=== PATIENT | male | born 1985 | race African-American/Black ===

== ENCOUNTER 2020-04-22 16:03 | Emergency (ER) | payer OTHER, SELFPAY ==
[2020-04-22 16:21] VITALS: BP 134/85; PULSE 92; RESP 18; TEMP 36.4; O2SAT 100; BMI 62.2
--- NOTE | 2020-04-22 18:02 | ED_ITS ---
HPI - URI/Sore Throat General Chief Complaint: Fever Stated Complaint: FLU LIKE SYMPTOMS Source: patient Mode of arrival: ambulatory Limitations: no limitations History of Present Illness HPI Narrative: Patient presents to the ED for cough, body aches, chills, subjective fever, and runny nose. Patient states he was informed by his job that 2 of his coworkers were positive for COVID-19. Patient states having symp toms the past 2 days. Patient states no one else at home having similar symptoms. Patient denies any shortness of breath. MD elicited complaint: fever Onset (ago): day(s) (2 days) Description of mucous: clear Able to tolerate fluids by mouth: Yes Exacerbating factors: nothing Context: sick contacts (co-workers positive for COVID-19) Associated symptoms: fever, chills, myalgias, rhinorrhea and cough Treatments prior to arrival: none Related Data Previous Rx's Medication Instructions Recorded benzonatate [Tessalon Perles] 100 mg PO TID #15 cap 04/22/20 ibuprofen 400 mg PO Q6H PRN #28 tab 04/22/20 Allergies Allergy/AdvReac Type Severity Reaction Status Date / Time SEASONAL ALLERGIES Allergy Mild RUNNY NOSE Uncoded 04/22/20 16:20 Review of Systems Review of Systems: Yes all other systems are reviewed and are negative Constitutional: Constitutional: Denies snoring ENT: Denies change in voice, Denies dysphagia, Reports nasal congestion, Denies odynophagia, Denies sore throat and Denies tongue swelling Cardiovascular: Cardiovascular: Denies chest pain, Denies chest pain at rest, Denies chest pain with activity, Denies dyspnea, Denies dyspnea on exertion, Denies orthopnea and Denies paroxysmal nocturnal dyspnea Respiratory: Respiratory: Reports as per HPI, Reports no additional respiratory complaints, Reports cough, Denies hemoptysis, Denies excessive phlegm production, Denies pain on inspiration, Denies pain with cough, Denies dyspnea, Denies dyspnea on exertion, Denies snoring, Denies stridor and Denies wheezing Gastrointestinal: Gastrointestinal: Reports as per HPI, Reports no additional gastrointestinal complaints, Denies abdominal pain, Denies belching, Denies melena, Denies hematochezia, Denies coffee ground emesis, Denies constipation, Denies GI cramping, Denies dysphagia, Denies dyspepsia, Denies heartburn, Denies diarrhea, Denies loose stools, Denies odynophagia, Denies vomiting and Denies he matemesis Allergic/Immunologic: Allergic/Immunologic: Denies tongue swelling and Denies wheezing PMFSH Social History Social History Advance Directives: No Advance Directives Information Provided: No Physical Exam Vital Signs and I&O and Narrative: Vital Signs and I&O: Vital Signs Temp 97.6 F 04/22/20 16:21 Pulse 92 04/22/20 16:21 Resp 18 04/22/20 16:21 BP 134/85 04/22/20 16:21 Pulse Ox 100 04/22/20 16:21 Intake & Output 04/22/20 04/22/20 04/23/20 06:59 18:59 06:59 Weight 220 kg Body Mass Index 62.2 Const: General: cooperative, healthy appearing, comfortable, no acute distress, well developed, alert, awake and Physically active Orientation/consciousness: patient oriented x3 HENMT: Head: Yes normal to inspection General nose exam: Normal external nose present Throat: Yes tonsils normal, Yes uvula midline, No abnormal tonsil and No peritonsillar mass Eyes: General: appearance normal, both eyes and all related structures Neck: Neck: Yes normal visual inspection, Yes full ROM, No no meningeal signs, No anterior neck swelling, No lymphadenopathy, No positive Brudzinski's sign and No positive Kernig's sign Chest: Chest palpation & inspection: normal inspection of the chest, normal inspection of the chest and no tenderness Resp: Effort & Inspection: normal respiratory effort, able to speak in complete sentences, normal respiratory pattern, no audible wheezes and Actively coughing Auscultation: clear to auscultation bilaterally, no crackles, no rales, no rhonchi and no wheezes Cardio: Jugular venous distension: no JVD Rate: regular rate Heart sounds: S1 normal heart sound present and S2 normal heart sound present GI: Inspection: Yes normal to inspection, No abdominal wall ecchymosis, No Abdominal wall edema, No distended, No incision and No Kehr's sign positive Palpation (GI): nontender Percussion: No bilateral flank dullness : General: Yes no CVA tenderness Back/Spine/Pelvis: Back: no CVA tenderness, No mass, No erythema and No warmth Skin: General skin exam: no rashes or lesions noted Neuro: General: patient oriented x3 and No no meningeal signs Cranial nerves: Yes CN's II-XII intact bilaterally Cognition (Neuro): normal cognition Extrem: General: Yes normal to inspection and Yes full ROM Psych: Appearance: grossly normal and well kempt Mental Status: mental status grossly normal Speech and movement: Normal speech and movement present Affect: normal affect Attitude: cooperative Course Course Course Narrative: History physical exam indicates URI. Patient lungs are clear and vital signs stable. Presently no chest x-ray indicated. Patient is swabbed for the COVID-19 virus. Patient educated on self isolation for 14 days. Patient will be discharged with Motrin. Reevaluation(s) Reevaluation #1: Patient does not appear in distress will be discharged Time: 18:11 MDM - URI/Sore Throat MDM Narrative Medical decision making narrative: patient will be treated as URI/viral syndrome. Patient discharged with Motrin. Patient is swabbed for COVID-19. Discharge Plan Discharge Clinical Impression: Upper respiratory infection, Acute viral syndrome Patient Disposition: Home, Self-Care Instructions: Upper Respiratory Infection (ED), Viral Syndrome (ED) Additional Instructions: return to the ED immediately for any chest pain, shortness of breath, weakness, inability to tolerate solid food/liquid, intractable fever, or any other concerning symptoms. Recommend 14 days self isolation if Covid tests comes back positive. please follow-up with [facility] PCP as soon as possible. call tomorrow for follow-up Prescriptions: New ibuprofen 400 mg tablet 400 mg PO Q6H PRN (Reason: fever or pain) Qty: 28 RF: 0 benzonatate [Tessalon Perles] 100 mg capsule 100 mg PO TID Qty: 15 RF: 0 Stand Alone Forms: Work/School Release Interventions: ED Discharge Assessment Last Done: 04/22/20 18:53 Discharge Date/Time: 04/22/20 18:54 Print Language: Andorran
== END 2020-04-22 18:54 | disposition home or self-care (01) ==
PROVIDERS: Emergency Provider Internal Medicine
DX: B34.9 Viral infection, unspecified (principal); Z20.828 Contact with and (suspected) exposure to other viral communicable diseases
CPT/HCPCS: 87635; 99283

== ENCOUNTER 2020-06-21 20:03 | Emergency (ER) | payer OTHER, SELFPAY ==
[2020-06-21 20:19] VITALS: BP 127/78; PULSE 97; RESP 18; TEMP 37.1; O2SAT 99; BMI 28.2
--- NOTE | 2020-06-21 21:28 | ED.GENADULT ---
HPI - General Adult General Chief complaint: Upper Respiratory Symptoms Stated complaint: Flu like symptoms Time Seen by Provider: 06/21/20 21:14 Source: patient Mode of arrival: ambulatory Limitations: no limitations History of Present Illness HPI narrative: Patient comes to emergency room complaining of flu-like symptoms, including cough, fever. Patient states he took Tylenol yesterday for a fever of 101. Patient denies shortness of breath MD complaint: flu-like symptoms Related Data Previous Rx's Medication Instructions Recorded benzonatate [Tessalon Perles] 100 mg PO TID #15 cap 04/22/20 ibuprofen 400 mg PO Q6H PRN #28 tab 04/22/20 Allergies Allergy/AdvReac Type Severity Reaction Status Date / Time SEASONAL ALLERGIES Allergy Mild RUNNY NOSE Uncoded 06/21/20 20:19 Review of Systems Review of Systems: Constitutional : No Weight loss, patient complaining of fever, chills, no night sweats, complaining of generalized body aches ENT/Mouth : No Hearing loss, No Ear Pain, No Nasal Congestion, No Sinus Pain, No Hoarseness, No sore throat, No Rhinorrhea, No Swallowing Difficulty Eyes: No Eye Pain, No Swelling, No Redness, No Foreign Body, No Discharge, No Vision Changes Cardiovascular : No Chest Pain, No SOB, No Dyspnea on Exertion, No Orthopnea, No Edema, No Palpitations Respiratory : mild Cough since yesterday, No Sputum, No Wheezing, No Smoke Exposure, No Dyspnea Gastrointestinal : No Nausea, No Vomiting, No Diarrhea, No Constipation, No abdominal Pain, No Hematochezia, No Melena Genitourinary : no irregular bleeding, No Dysuria, No Urinary Frequency, No Hematuria, No Urinary Incontinence, No Urgency, No Flank Pain, No Urinary Flow Changes, No Hesitancy Musculoskeletal : No joint pain, No Myalgias, No Joint Swelling Skin : No Skin Lesions, No rash Neuro : No Weakness, No Numbness, No Paresthesias, No Loss of Consciousness, No Dizziness, No Headache Psych : No Anxiety/Panic, No Depression, No SI/HI/AH/VH, No Social Issues, Heme/Lymph: No Bruising, No Bleeding,No Lymphadenopathy Endocrine : No Polyuria, No Polydipsia, No Temperature Intolerance PMFSH Past Medical History Medical History Asthma H. pylori infection Social History Social History Advance Directives: No Advance Directives Information Provided: No Physical Exam Vital Signs: Vital Signs: Last Vital Signs Temp 98.7 F 06/21/20 20:19 Pulse 97 06/21/20 20:19 Resp 18 06/21/20 20:19 BP 127/78 06/21/20 20:19 Pulse Ox 99 06/21/20 20:19 Body Mass Index 28.2 Appearance: Alert. Oriented X3. No acute distress. Eyes: Pupils equal, round and reactive to light. ENT: Pharynx normal. Neck: Normal inspection. Neck supple. No lymph nodes noted. No crepitus CVS: Normal heart rate and rhythm. Pulses normal. Normal S1 and S2 Respiratory: No respiratory distress. Breath sounds normal. No Wheezing. No rales Abdomen: Soft and nontender. No rigidity. No distention. good BS x4 Skin: Skin warm and dry. Normal skin color. Normal skin turgor. Extremities: No lower extremity edema. No lower extremity edema. No Lacerations. No Rash Neuro: Oriented X 3. No motor deficit. No sensory deficit. Moving all extermities. No slurred speech. Course Course Course Narrative: patient's physical exam is within normal limits, vitals stable, patient tested for COVID-19. Discharge Plan Discharge Clinical Impression: Upper respiratory infection Qualifiers: URI type: unspecified viral URI Qualified Code(s): J06.9 - Acute upper respiratory infection, unspecified Patient Disposition: Home, Self-Care Instructions: Viral Syndrome (ED) Additional Instructions: you were tested for COVID-19, if you have any shortness of breath, any new symptoms, please return to the emergency room. please wait and self isolate until your receive her COVID-19 results. Insert discharge Prescriptions: No Action ibuprofen 400 mg tablet 400 mg PO Q6H PRN (Reason: fever or pain) Qty: 28 RF: 0 benzonatate [Tessalon Perles] 100 mg capsule 100 mg PO TID Qty: 15 RF: 0 Stand Alone Forms: Work/School Release
--- NOTE | 2020-06-21 21:40 | PC.NURSE ---
covid swab performed
== END 2020-06-21 21:40 | disposition home or self-care (01) ==
PROVIDERS: Emergency Provider Emergency Medicine
DX: J06.9 Acute upper respiratory infection, unspecified (principal); Z20.828 Contact with and (suspected) exposure to other viral communicable diseases; J45.909 Unspecified asthma, uncomplicated
CPT/HCPCS: 99283; U0003

== ENCOUNTER 2020-07-04 20:49 | Emergency (ER) | payer OTHER, SELFPAY ==
[2020-07-04 20:59] VITALS: BP 136/73; PULSE 87; RESP 18; TEMP 37.1; O2SAT 100; BMI 27.7
[2020-07-04 22:00] VITALS: BP 132/78; PULSE 81; RESP 18; O2SAT 99
--- NOTE | 2020-07-04 22:15 | ED_ITS ---
HPI - Abdominal Pain General Chief Complaint: Abdominal Pain Stated Complaint: abdominal pain Time Seen by Provider: 07/04/20 22:14 Source: patient Mode of arrival: ambulatory Limitations: no limitations History of Present Illness HPI narrative: Patient with history of H pylori gastritis diagnosed last month took antibiotic course which he finished last week since yesterday evening patient been having diarrhea had multiple bouts of watery stools 4-5 times since last night with diffuse abdominal cramping patient denies any fever stool is mostly watery no blood somebody else at home is sick MD elicited complaint: abdominal pain Pertinent past history: gastritis Onset (ago): hour(s) (1) Pain Consistency: constant Location: diffuse Severity: mild Quality: cramping Migration to: no migration Exacerbating factors: eating Relieving factors: nothing Context: recent antibiotic use Associated symptoms: diarrhea Related Data Previous Rx's Medication Instructions Recorded benzonatate [Tessalon Perles] 100 mg PO TID #15 cap 04/22/20 ibuprofen 400 mg PO Q6H PRN #28 tab 04/22/20 dicyclomine 20 mg PO QID PRN #14 tab 07/04/20 Allergies Allergy/AdvReac Type Severity Reaction Status Date / Time SEASONAL ALLERGIES Allergy Mild RUNNY NOSE Uncoded 07/04/20 20:59 Review of Systems Review of Systems REVIEW OF SYSTEMS: Pertinent positives and negatives are stated above in the history. GEN: no fevers, chills, fatigue HEENT: no nasal congestion, sore throat, ear pain NEURO: no headache, dizziness, focal weakness PULM: no cough, shortness of breath CV: no chest pain, palpitations, LE edema ABD: no , nausea, vomiting, : no dysuria, urgency, frequency SKIN: no rash ROS otherwise negative x 10 Physical Exam Vital Signs: Vital Signs: Last Vital Signs Temp 98.8 F 07/04/20 20:59 Pulse 81 07/04/20 22:00 Resp 18 07/04/20 22:00 BP 132/78 07/04/20 22:00 Pulse Ox 99 07/04/20 22:00 Body Mass Index 27.7 Appearance: Alert. Oriented X3. No acute distress. Eyes: Pupils equal, round and reactive to light. ENT: Pharynx normal. Neck: Normal inspection. Neck supple. CVS: Normal heart rate and rhythm. Pulses normal. Respiratory: No respiratory distress. Breath sounds normal. Abdomen: Soft and nontender no hepatosplenomegaly bowel sounds are present no rebound tenderness or guarding. Skin: Skin warm and dry. Normal skin color. Normal skin turgor. Extremities: No lower extremity edema. Good range of movement Neuro: Oriented X 3. No motor deficit. No sensory deficit. MDM - Abdominal Pain MDM Narrative Medical decision making narrative: Patient with enteritis mostly diarrhea feeling much better after dicyclomine and Imodium taking p.o. fluids will discharge him home on Bentyl advised to take Imodium as needed. Likely cause of diarrhea is viral Discharge Plan Discharge Clinical Impression: Gastroenteritis Patient Disposition: Home, Self-Care Instructions: Gastroenteritis (ED) Additional Instructions: Drink plenty of fluid take medication as prescribed as needed for diarrhea Prescriptions: New dicyclomine 20 mg tablet 20 mg PO QID PRN (Reason: abdominal pain) Qty: 14 RF: 0 No Action ibuprofen 400 mg tablet 400 mg PO Q6H PRN (Reason: fever or pain) Qty: 28 RF: 0 benzonatate [Tessalon Perles] 100 mg capsule 100 mg PO TID Qty: 15 RF: 0 Stand Alone Forms: Work/School Release Interventions: ED Discharge Assessment Last Done: 07/04/20 23:29 Discharge Date/Time: 07/04/20 23:30 [facility] Past Medical History Medical History Asthma H. pylori infection Social History Social History Advance Directives: No Advance Directives Information Provided: No
[2020-07-04] MEDS: Loperamide HCl 2 MG CAPSULE 4 MG PO (22:46)
[2020-07-04] MEDS: Dicyclomine HCl 10 MG CAPSULE 20 MG PO (22:47)
== END 2020-07-04 23:30 | disposition home or self-care (01) ==
PROVIDERS: Emergency Provider Internal Medicine
DX: K52.9 Noninfective gastroenteritis and colitis, unspecified (principal)
CPT/HCPCS: 99283; 99284

== ENCOUNTER 2020-10-29 16:18 | Emergency (ER) | payer OTHER, SELFPAY ==
--- NOTE | 2020-10-29 | ECG_ITS ---
Test Reason : CHEST PAIN Blood Pressure : / mmHG Vent. Rate : 081 BPM Atrial Rate : 081 BPM P-R Int : 152 ms QRS Dur : 090 ms QT Int : 380 ms P-R-T Axes : 084 055 049 degrees QTc Int : 441 ms Normal sinus rhythm Normal ECG When compared with ECG of 04-NOV-2019 10:26, No significant change was found Referred By: Generic ED Physician Electronically Signed By:SHANEL BLANCAS
--- NOTE | ~2020-10-29 | XR_ITS ---
EXAMINATION: CHEST 2 VIEWS CLINICAL INFORMATION: cough, cp . COMPARISON: No recent pertinent prior studies are available for comparison. TECHNIQUE: PA and lateral views of the chest obtained. FINDINGS: The lungs are well expanded. No focal infiltrate, effusion, edema, or pneumothorax. Cardiac and mediastinal silhouettes are within normal limits for technique. No acute bony abnormality seen XR/XR chest 2V IMPRESSION: No evidence of acute disease
[2020-10-29 16:57] VITALS: BP 130/96; PULSE 80; RESP 16; TEMP 36.5; O2SAT 100; BMI 28.2
[2020-10-29 17:26] LABS: MANUAL DIFF FLAG NO
[2020-10-29 17:27] LABS: Basophils Percent Auto 0.6 % (0-2); Eosinophils Absolute Auto 0.4 X10*3/uL (0.0-0.4); Eosinophils Percent Auto 5.9 % (0-4); Hematocrit 41.2 % (42-52); Hemoglobin 13.5 g/dl (14.0-18.0); Imm Gran Abs Auto 0.01 X10*3/uL (0.00-0.03); Imm Gran Pct Auto 0.1 % (0.0-0.4); Lymphocytes Absolute Auto 2.7 X10*3/uL (1.2-4.9); Mean Corpuscular HGB Conc 32.8 g/dl (31.0-36.0); Mean Corpuscular Hemoglobin 29.9 pg (27.0-33.0); Mean Corpuscular Volume 91.2 fL (80-98); Monocytes Absolute Auto 0.5 X10*3/uL (0.1-1.2); Monocytes Percent Auto 7.2 % (2-11); Neutrophils Absolute Auto 3.2 X10*3/uL (2.0-8.3); Neutrophils Percent Auto 46.2 % (45-73); Platelet Count 248 X10*3/uL (160-400); Red Blood Count 4.52 X10*6/uL (4.60-5.80); Red Cell Distribution Width 13.2 % (11.0-16.0); White Blood Count 6.8 X10*3/uL (4.8-10.8)
[2020-10-29 17:45] LABS: COVID-19 Test Negative (Negative); IDNOW Serial# 08D9AD1C
[2020-10-29 17:52] LABS: Troponin-I High Sensitivity < 3.5 ng/L (<3.5-35.0)
[2020-10-29 18:15] LABS: Anion Gap 11 (12-20); Blood Urea Nitrogen 8 mg/dL (9-16); Calcium 9.3 mg/dL (8.4-10.2); Carbon Dioxide 21 mmol/L (22-29); Chloride 109 mmol/L (96-108); Creatinine Clr Calc Pharmacy 152.7; Estimated Glomerular Filt Rate > 60; Glucose Random 88 mg/dL (60-115); Potassium 4.2 mmol/L (3.3-5.1); Sodium 137 mmol/L (135-145)
== END 2020-10-29 21:34 | disposition left against medical advice (07) ==
LOC: HO.ED 21:31
PROVIDERS: Emergency Provider Emergency Medicine
DX: R07.9 Chest pain, unspecified (principal); Z20.822 Contact with and (suspected) exposure to COVID-19; R06.02 Shortness of breath
CPT/HCPCS: 36415; 71046; 80048; 84484; 85025; 87635; 93005; 99283

== ENCOUNTER 2021-08-05 19:57 | Emergency (ER) | payer OTHER, SELFPAY ==
[2021-08-05 20:33] VITALS: BP 124/73; PULSE 75; RESP 18; TEMP 36.9; O2SAT 94; BMI 28.2
[2021-08-05 21:22] LABS: Influenza A PCR NEGATIVE (Negative); Influenza B PCR NEGATIVE (Negative); Resp Syncy Virus RNA Qual PCR NEGATIVE (Negative); SARS COV2 PCR INHOUSE POSITIVE (Negative)
== END 2021-08-06 00:47 | disposition left against medical advice (07) ==
PROVIDERS: Emergency Provider Emergency Medicine; PCP Internal Medicine
DX: H53.8 Other visual disturbances (principal); G43.909 Migraine, unspecified, not intractable, without status migrainosus; Z20.822 Contact with and (suspected) exposure to COVID-19
CPT/HCPCS: 0241U; 99282; 99283

== ENCOUNTER 2021-10-10 20:13 | Emergency (ER) | payer OTHER, SELFPAY ==
--- NOTE | ~2021-10-10 | XR_ITS ---
EXAMINATION: XR FOOT, LEFT CLINICAL INFORMATION: Fall. COMPARISON: None TECHNIQUE: AP, lateral, and oblique views of the left foot. FINDINGS: The bones and soft tissues are normal except for focal area of linear dense sclerosis involving the distal posterior part of the left tibia likely represent a bone island. No fracture. Alignment is anatomic. Joint spaces are maintained. XR/XR foot LT min 3V IMPRESSION: No radiographic evidence of any fracture and/or dislocation or subluxation. Likely bone island within the distal part of the posterior tibia.
[2021-10-10 20:18] VITALS: BP 131/93; PULSE 88; RESP 16; TEMP 36.7; O2SAT 99; BMI 28.2
--- NOTE | 2021-10-10 20:28 | ED.LOWEXIN ---
HPI - Extremity Injury (Lower) General Chief Complaint: Extremity Injury, Lower Stated Complaint: fall Source: patient Mode of arrival: wheelchair Limitations: no limitations History of Present Illness HPI Narrative: 36-year-old male presents with left ankle injury after twisting his left ankle while walking down the stairs. States that he has taken Tylenol and ibuprofen with poor effect and is unable to bear full weight on the ankle. MD complaint: ankle injury Onset (ago): hour(s) (Within our arrival) Injury: Left: ankle Type of Injury: inversion and eversion Place: home Severity: moderate Severity scale (1-10): 7 Relieving factors: nothing Exacerbating factors: weight bearing, movement and palpation Context: other (Stepping down stairs) Associated symptoms: snap/pop sensation, swelling and able to partially bear weight Other symptoms: none Treatments prior to arrival: cold therapy and NSAIDS Related Data Previous Rx's Medication Instructions Recorded benzonatate 100 mg capsule 100 mg PO TID #15 cap 04/22/20 (Vicki Storey) ibuprofen 400 mg tablet 400 mg PO Q6H PRN #28 tab 04/22/20 dicyclomine 20 mg tablet 20 mg PO QID PRN #14 tab 07/04/20 Allergies Allergy/AdvReac Type Severity Reaction Status Date / Time SEASONAL ALLERGIES Allergy Mild RUNNY NOSE Uncoded 08/05/21 20:33 Review of Systems Review of Systems: Constitutional: No Fever, No Chills ENT/Mouth: No Ear Pain, No Hoarseness, No sore throat Eyes: No Eye Pain, No Swelling, No Redness, No Foreign Body Cardiovascular: No Chest Pain, No SOB Respiratory: No Cough, No Dyspnea Gastrointestinal: No Nausea, No Vomiting, No Diarrhea, No abdominal Pain Genitourinary: No Dysuria, No Hematuria Musculoskeletal: positive left foot pain, No Myalgias, positive left foot Swelling Skin: No Skin lacerations, No rash Neuro: No Weakness, No Numbness, No Paresthesias, No Loss of Consciousness, No Dizziness, No Headache Psych: No Anxiety/Panic, No Depression Heme/Lymph: no easy bruising, no Lymphadenopathy Endocrine: No Polyuria, No Polydipsia Yes all other systems are reviewed and are negative [facility] Past Medical History Attestation statement: The following information was validated with the patient. Source: old records reviewed Medical History Asthma H. pylori infection Social History Social History Advance Directives: No Advance Directives Information Provided: Yes Physical Exam Vital Signs: Vital Signs: Last Vital Signs Temp 98.1 F 10/10/21 20:18 Pulse 88 10/10/21 20:18 Resp 16 10/10/21 20:18 BP 131/93 H 10/10/21 20:18 Pulse Ox 99 10/10/21 20:18 BMI result Body Mass Index 28.2 Appearance: Alert. Oriented X3. No acute distress. Eyes: Pupils equal, round and reactive to light. ENT: Pharynx normal. Neck: Normal inspection. Neck supple. CVS: Normal heart rate and rhythm. Pulses normal. Respiratory: No respiratory distress. Breath sounds normal. Abdomen: Soft and nontender. Skin: Skin warm and dry. Normal skin color. Normal skin turgor. Extremities: Full flexion and extension internal and external rotation of the ankle, strength 5/5 to digits. Tenderness noted to the mid 3rd 4th and 5th. Lateral hematoma noted. Brisk capillary refill in equal pulses to bilateral lower extremities. Neurovascularly intact. Neuro: No motor deficit. No sensory deficit. Cranial nerves 2-12 intact. Course Course Course Narrative: 36-year-old male presents with injury to his left foot after stepping down and falling while doing laundry. Visible hematoma to the lateral aspect of his left foot. No decreased range of motion to ankle, no tenderness to bilateral malleolar process. Full flexion and extension. 22:30 x-rays negative for acute findings require emergent intervention. Will place patient in an Venkatesh wrap and provide crutches as needed for comfort. Patient verbalized understanding of and agrees to plan of care discharge home. Verbalized understanding of signs and symptoms needing emergent intervention. MDM - Extremity Injury (Lower) MDM Narrative Medical decision making narrative: For fracture, foot dislocation Differential Diagnosis Differential diagnosis: Likely ankle sprain and strain and ankle fracture Medical Records Attestation: I reviewed the patient's medical records. Lab Data Attestation: I reviewed the patient's lab results. Imaging Data Foot x-ray: Attestation: I personally reviewed and interpreted this imaging study as follows: Radiologist's impression: EXAMINATION: XR FOOT, LEFT CLINICAL INFORMATION: Fall.? COMPARISON: None? TECHNIQUE: AP, lateral, and oblique views of the left foot. FINDINGS: The bones and soft tissues are normal except for focal area of linear dense sclerosis involving the distal posterior part of the left tibia likely represent a bone island. No fracture. Alignment is anatomic. Joint spaces are maintained.? XR/XR foot LT min 3V IMPRESSION: No radiographic evidence of any fracture and/or dislocation or subluxation. Likely bone island within the distal part of the posterior tibia. Discharge Plan Discharge Clinical Impression: Muscle strain of left foot Patient Disposition: Home, Self-Care Instructions: Crutch Instructions (ED), Ankle Strain (ED) Additional Instructions: You were evaluated for injuries sustained from a fall. X-rays of your left foot are negative for fracture and dislocation. Your injuries are consistent with a strain. Please keep the Venkatesh wrap in place as needed for comfort. Use crutches to ambulate as needed. If pain worsens please follow-up with primary care physician. Use Tylenol 650 mg every 6 hours and Motrin 600 mg every 6 hours as needed for pain management. Please write down what time he take these medications to prevent accidental overdose. Thank you for choosing this emergency department for evaluation. Please follow-up with primary care physician as needed. Return to the emergency department for any new, concerning, or worsening symptoms. Prescriptions: No Action ibuprofen 400 mg tablet 400 mg PO Q6H PRN (Reason: fever or pain) Qty: 28 0RF benzonatate [Tessalon Perles] 100 mg capsule 100 mg PO TID Qty: 15 0RF dicyclomine 20 mg tablet 20 mg PO QID PRN (Reason: abdominal pain) Qty: 14 0RF Stand Alone Forms: Work/School Release Interventions: ED Discharge Assessment Last Done: 10/10/21 22:49 Discharge Date/Time: 10/10/21 22:50
== END 2021-10-10 22:50 | disposition home or self-care (01) ==
PROVIDERS: Emergency Provider Internal Medicine
DX: S96.912A Strain of unspecified muscle and tendon at ankle and foot level, left foot, initial encounter (principal); X50.1XXA Overexertion from prolonged static or awkward postures, initial encounter; Y93.E2 Activity, laundry; Y92.019 Unspecified place in single-family (private) house as the place of occurrence of the external cause; Y99.9 Unspecified external cause status
CPT/HCPCS: 73630; 99283

== ENCOUNTER 2021-11-02 22:18 | Emergency (ER) | payer OTHER, SELFPAY ==
[2021-11-02 23:21] VITALS: BP 151/102; PULSE 90; RESP 20; TEMP 36.3; O2SAT 100; BMI 28.2
[2021-11-02 23:35] LABS: Basophils Absolute Auto 0.1 X10*3/uL (0.0-0.2); Basophils Percent Auto 0.7 % (0-2); Eosinophils Absolute Auto 0.4 X10*3/uL (0.0-0.4); Eosinophils Percent Auto 5.8 % (0-4); Hematocrit 39.2 % (42.0-52.0); Hemoglobin 13.3 g/dl (14.0-18.0); Imm Gran Abs Auto 0.01 X10*3/uL (0.00-0.03); Imm Gran Pct Auto 0.1 % (0.0-0.4); Lymphocytes Absolute Auto 4.3 X10*3/uL (1.2-4.9); Lymphocytes Percent Auto 60.9 % (20-40); MANUAL DIFF FLAG SCAN; Mean Corpuscular HGB Conc 33.9 g/dl (31.0-36.0); Mean Corpuscular Hemoglobin 29.5 pg (27.0-33.0); Mean Corpuscular Volume 86.9 fL (80.0-98.0); Mean Platelet Volume 10.5 fL (9.4-12.4); Monocytes Absolute Auto 0.6 X10*3/uL (0.1-1.2); Monocytes Percent Auto 8.7 % (2-11); Neutrophils Absolute Auto 1.7 x10*3/uL (2.0-8.3); Neutrophils Percent Auto 23.8 % (45-73); Platelet Count 250 X10*3/uL (160-400); Red Blood Count 4.51 X10*6/uL (4.60-5.80); SCAN SMEAR FLAG 1; White Blood Count 7.1 X10*3/uL (4.8-10.8)
[2021-11-02 23:52] LABS: SLIDE REVIEW VERIFIED
[2021-11-03] LABS: Alanine Aminotransferase 14 U/L (0-40); Albumin Level 4.1 g/dL (3.5-5.0); Alkaline Phosphatase 39 U/L (39-117); Anion Gap 13 (12-20); Aspartate Amino Transferase 18 U/L (5-37); Bilirubin Total 0.5 mg/dL (0.0-1.0); Blood Urea Nitrogen 9 mg/dL (9-16); Calcium 10.4 mg/dL (8.4-10.2); Carbon Dioxide 26 mmol/L (22-29); Chloride 105 mmol/L (96-108); Estimated Glomerular Filt Rate > 60; Glucose Random 73 mg/dL (60-115); Lipase 22 U/L (8-78); Potassium 4.1 mmol/L (3.3-5.1); Sodium 140 mmol/L (135-145); Total Protein 7.2 g/dL (6.5-8.0)
[2021-11-03 00:13] VITALS: BP 148/99; PULSE 77; RESP 16; TEMP 36.5; O2SAT 100
--- NOTE | 2021-11-03 00:16 | PC.NURSE ---
pt ambulated to BR to void with visible discomfort in the LUQ
--- NOTE | 2021-11-03 00:26 | ED_ITS ---
HPI - Abdominal Pain General Chief Complaint: Abdominal Pain Stated Complaint: stomach pain Time Seen by Provider: 11/03/21 00:25 Source: patient Mode of arrival: ambulatory History of Present Illness HPI narrative: 36-year-old male without significant past medical history other than prior treatment for H pylori presents with being awakened from sleep with epigastric pain that he describes as sharp and constant nature but denies any associated fever, chills, vomiting however he has had some nausea. Otherwise, she denies any shortness of breath/chest pain/palpitations/diarrhea or the use of alcohol. Related Data Home Medications Medication Instructions Recorded Confirmed lisdexamfetamine 40 mg capsule 1 cap PO BID 11/03/21 11/03/21 (Vyvanse) ondansetron HCl 4 mg tablet 1 tab PO Q8H PRN 11/03/21 11/03/21 propranolol 20 mg tablet 1 tab PO BID 11/03/21 11/03/21 trazodone 50 mg tablet 1 tab PO BEDTIME 11/03/21 11/03/21 Previous Rx's Medication Instructions Recorded sucralfate 100 mg/mL oral 10 ml PO BID #420 ml 11/03/21 suspension (Carafate) Allergies Allergy/AdvReac Type Severity Reaction Status Date / Time SEASONAL ALLERGIES Allergy Mild RUNNY NOSE Uncoded 11/02/21 23:21 Review of Systems Review of Systems Pertinent positives and negatives as stated in HPI and 10 point review of systems is otherwise negative. PMFSH Past Medical History Source: nursing notes reviewed Medical History Asthma H. pylori infection Social History Social History Advance Directives: No Advance Directives Information Provided: Yes Physical Exam ED Vital Signs: Vital Signs - 24 hr 11/02/21 23:21 11/03/21 00:13 Temperature 97.3 F 97.7 F Pulse Rate 90 77 Respiratory Rate 20 16 Blood Pressure 151/102 H 148/99 H Pulse Oximetry 100 100 BMI result Body Mass Index 28.2 VITAL SIGNS: Reviewed. GENERAL: Well developed, well nourished, in no acute distress. HEAD: Normocephalic/atraumatic EYES: PERRLA, EOMI EARS: Ext canals without abnormality OROPHARYNX: no oral lesions noted, posterior pharynx clear LUNGS: Normal breath sounds. No adventitious sounds or accessory muscle use. SpO2<100> CARDIOVASCULAR: Regular rate and rhythm without noted murmurs ABDOMEN: Soft, epigastric tenderness on palpation, non-distended with bowel sounds. SKIN: Inspection of the skin reveals no rashes NEUROLOGIC: Alert and oriented x 4. Strength and sensation to light touch were grossly intact x 4. Course Course Course Narrative: 36-year-old male with history and clinical presentation suggestive of gastritis/ulcer. Review of all investigations otherwise negative for acute findings to suggest cholecystitis, pancreatitis. Re-evaluation after patient received GI cocktail and Carafate he reports significant improvement of his symptoms and is pain free at this time. MDM - Abdominal Pain Lab Data Result diagrams: 11/02/21 23:24 11/02/21 23:24 Labs: Lab Results 11/02/21 11/02/21 11/03/21 Range/Units 23:24 23:24 00:23 WBC 7.1 (4.8-10.8) X10*3/uL RBC 4.51 L (4.60-5.80) X10*6/uL Hgb 13.3 L (14.0-18.0) g/dl Hct 39.2 L (42.0-52.0) % MCV 86.9 (80.0-98.0) fL MCH 29.5 (27.0-33.0) pg MCHC 33.9 (31.0-36.0) g/dl RDW 13.0 (11.0-16.0) % Plt Count 250 (160-400) X10*3/uL MPV 10.5 (9.4-12.4) fL Immature Gran % (Auto) 0.1 (0.0-0.4) % Neut % (Auto) 23.8 L (45-73) % Lymph % (Auto) 60.9 H (20-40) % [place] % (Auto) 8.7 (2-11) % Eos % (Auto) 5.8 H (0-4) % Baso % (Auto) 0.7 (0-2) % Lymph # (Auto) 4.3 (1.2-4.9) X10*3/uL [place] # (Auto) 0.6 (0.1-1.2) X10*3/uL Eos # (Auto) 0.4 (0.0-0.4) X10*3/uL Baso # (Auto) 0.1 (0.0-0.2) X10*3/uL Abs Immat Gran (auto) 0.01 (0.00-0.03) X10*3/uL Absolute Neuts (auto) 1.7 L (2.0-8.3) x10*3/uL Absolute Nucleated RBC 0.000 (0.0-0.012) X10*3/uL Nucleated RBC % (auto) 0.0 (0.0-0.2) /100WBC Smear Tech's Comments VERIFIED Sodium 140 (135-145) mmol/L Potassium 4.1 (3.3-5.1) mmol/L Chloride 105 (96-108) mmol/L Carbon Dioxide 26 (22-29) mmol/L Anion Gap 13 (12-20) BUN 9 (9-16) mg/dL Creatinine 0.91 (0.5-1.4) mg/dL Estim Creat Clear Calc 143.0 Estimated GFR > 60 Random Glucose 73 (60-115) mg/dL Calcium 10.4 H D (8.4-10.2) mg/dL Total Bilirubin 0.5 (0.0-1.0) mg/dL AST 18 (5-37) U/L ALT 14 (0-40) U/L Alkaline Phosphatase 39 (39-117) U/L Total Protein 7.2 (6.5-8.0) g/dL Albumin 4.1 (3.5-5.0) g/dL Lipase 22 (8-78) U/L Urine Color YELLOW Urine Appearance CLEAR Urine pH 7.0 (5.0-8.0) Ur Specific [place] 1.020 (1.005-1.025) Urine Protein NEG (NEG-TRACE) MG/DL Urine Glucose (UA) NEG (NEG) MG/DL Urine Ketones NEG (NEG) MG/DL Urine Blood NEG (NEG) Urine Nitrite NEG (NEG) Ur Leukocyte Esterase NEG (NEG) Discharge Plan Discharge Clinical Impression: Gastritis, Epigastric pain Patient Disposition: Home, Self-Care Instructions: Gastritis (ED), Diet for Stomach Ulcers and Gastritis (ED), Epigastric Pain (ED) Additional Instructions: 1. Please review the information regarding dietary changes. 2. Follow-up with your primary care provider the next 1-2 days to discuss possible retesting for H pylori and/or referral for gastroenterology of for an upper endoscopy. Return to the ER for worsening symptoms. Prescriptions: New sucralfate [Carafate] 100 mg/mL suspension 10 ml PO BID Qty: 420 0RF No Action trazodone 50 mg tablet 1 tab PO BEDTIME 0RF ondansetron HCl 4 mg tablet 1 tab PO Q8H PRN (Reason: Nausea) 0RF propranolol 20 mg tablet 1 tab PO BID 0RF Vyvanse 40 mg capsule 1 cap PO BID 0RF Referrals: Milad Coon MD [Primary Care Provider] -
[2021-11-03] MEDS: Lidocaine HCl Viscous 2 % 15 ML SOLUTION 10 ML MUCOUS MEM (00:31)
[2021-11-03] MEDS: Sucralfate Oral Suspension 1 GM/10 ML ORAL.SUSP PO (00:32)
[2021-11-03] MEDS: Magnesium Hydrox/Alum Hydrox 30 ML ORAL.SUSP PO (00:32)
[2021-11-03 00:44] LABS: Appearance Urine CLEAR; Color Urine YELLOW; Glucose Urine UA NEG (NEG); Leukocyte Esterase Urine NEG (NEG); Nitrite Urine NEG (NEG); Urine Blood NEG (NEG); Urine Ketones NEG (NEG); Urine Protein NEG (NEG-TRACE)
--- NOTE | 2021-11-03 01:04 | PC.NURSE ---
pt reports decreased pain after medication administration
== END 2021-11-03 01:32 | disposition home or self-care (01) ==
PROVIDERS: Emergency Provider Student in an Organized Health Care Education/Training Program; PCP Internal Medicine
DX: K29.70 Gastritis, unspecified, without bleeding (principal); R10.13 Epigastric pain; Z79.899 Other long term (current) drug therapy
CPT/HCPCS: 36415; 80053; 81003; 83690; 85025; 99283; 99284

== ENCOUNTER 2021-11-03 12:35 | Emergency (ER) | payer OTHER, SELFPAY ==
[2021-11-03 12:56] VITALS: BP 160/100; PULSE 87; O2SAT 98
[2021-11-03 13:18] VITALS: BP 138/99; PULSE 89; RESP 18; TEMP 36.7; O2SAT 100; BMI 28.2
== END 2021-11-03 15:48 | disposition left against medical advice (07) ==
PROVIDERS: Emergency Provider Emergency Medicine
DX: R10.12 Left upper quadrant pain (principal)
CPT/HCPCS: 99281; 99282

== ENCOUNTER 2022-02-13 05:29 | Emergency (ER) | payer OTHER, SELFPAY ==
[2022-02-13 05:36] VITALS: BP 142/91; PULSE 97; RESP 16; TEMP 36.1; O2SAT 100; BMI 28.0
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
== END 2022-02-13 08:49 | disposition home or self-care (01) ==
PROVIDERS: Emergency Provider Student in an Organized Health Care Education/Training Program
DX: S39.012A Strain of muscle, fascia and tendon of lower back, initial encounter (principal); V43.52XA Car driver injured in collision with other type car in traffic accident, initial encounter; Y93.89 Activity, other specified; Y92.411 Interstate highway as the place of occurrence of the external cause; Y99.9 Unspecified external cause status
CPT/HCPCS: 99282; 99283